=== PATIENT | male | born 1965 ===

== ENCOUNTER 2017-05-05 11:05 | Day surgery (SDC) | payer MEDICAID ==
[2017-05-05 11:47] VITALS: BMI 34.8
[2017-05-05] MEDS ORDERED: Lactated Ringer's 1,000 ML IV ONE (12:00)
[2017-05-05] MEDS ORDERED: MethylPREDNISolone Depo 40 mg/ml Inj ONE (12:56)
[2017-05-05] MEDS ORDERED: Bupivacaine HCl 0.5% PF (10 ml) Inj ONE (12:56)
[2017-05-05] MEDS ORDERED: Lidocaine 1% Inj (20ml) ONE (12:57)
[2017-05-05] MEDS ORDERED: Midazolam 2 MG/2 ML VIAL ONE (13:52)
[2017-05-05] MEDS ORDERED: Lidocaine 1% Inj (20ml) IJ ONE (13:55)
[2017-05-05] MEDS ORDERED: methylPREDNISolone Depo 80 mg/ml Inj IM ONE (13:55)
[2017-05-05] MEDS ORDERED: Bupivacaine HCl 0.5% PF (10 ml) Inj IJ ONE (13:55)
[2017-05-05] MEDS ORDERED: Lactated Ringer's 1,000 ML IV SCH (14:45)
[2017-05-05 16:52] VITALS: BP 122/71; PULSE 71; RESP 18; TEMP 98.4; O2SAT 95
--- NOTE | 2017-05-05 22:49 | OP ---
DATE OF PROCEDURE: 05/05/2017 PREOPERATIVE DIAGNOSIS: Lumbar facet syndrome. POSTOPERATIVE DIAGNOSIS: Lumbar facet syndrome. PROCEDURES PERFORMED: Left L3, L4, and L5 medial branch nerve radiofrequency. SURGEON: Dr. Gonzales. TYPE OF ANESTHESIA: Monitored anesthesia care. ANESTHESIOLOGIST: Dr. Obando. COMPLICATIONS: None. SPECIMENS: None. DESCRIPTION OF PROCEDURE: After we had a discussion of the procedure with the patient including its risks, benefits, alternative, outcome data, possibility of no effect or increased pain, the patient consented to the procedure. He denies any recent infections, bleeding tendencies, or being on anticoagulants, and the decision was then made to proceed to the OR. The patient was placed on a fluoroscopy table in a prone position with 2 pillows underneath his abdomen. The back was prepped and draped in usual sterile fashion and sterile technique was adhered during the entire procedure. The L3, L4, and L5 medial branch nerves were located at the intersection of the superior articular process and the transverse process of the L4-L5 pedicle and also the sacroiliac. The 3 above-targeted areas were visualized on fluoroscopy by turning the fluoroscopy towards the left at approximately 15 degrees. The skin overlying the 3 above-targeted areas were infiltrated with 1% lidocaine using 25-gauge needle. Subsequently, a 22-gauge 3.5-inch spinal needle was then incrementally advanced under fluoroscopic guidance until tip of the needle made bony contact with all 3 target areas. After satisfactory positioning of all 3 needles, sensory and motor testing were carried out to satisfactory results. The patient reported corresponding left-sided lower back pain without any motor twitching down the left leg. At this point, approximately 2 mL of lidocaine was injected to anesthetize each nerve. Radiofrequency was then carried out at 80 degree Celsius for approximately 1-1/2 minutes. At the end of the procedure, each nerve was treated with a combination of 0.5% Marcaine and Depo-Medrol. At the end of the case, the patient's back was cleaned and dried, and bandages were applied. The patient was then transferred to recovery area in good condition without any signs of DRAW BENCH OPERATOR HELPER toxicity or any neurological deficits. He will have a followup in our office in approximately 2 to 4 weeks. En-Martin Gonzales MD
== END 2017-05-05 15:45 | disposition home or self-care (01) ==
LOC: H.OPSURG 11:05
PROVIDERS: ATTEND Anesthesiology
DX: M54.08 Panniculitis affecting regions of neck and back, sacral and sacrococcygeal region (principal); G47.30 Sleep apnea, unspecified; I10 Essential (primary) hypertension; J45.909 Unspecified asthma, uncomplicated
CPT/HCPCS: 64635; 64636; J1030; J1040; J2250; J3010; J7120

== ENCOUNTER 2017-10-29 06:22 | Day surgery (SDC) | payer BC ==
[2017-10-29] MEDS ORDERED: Lidocaine 1% Inj (20ml) IJ ONE (08:40)
[2017-10-29] MEDS ORDERED: Lactated Ringer's 1,000 ML IV ONE (08:40)
[2017-10-29] MEDS ORDERED: Bupivacaine 0.5% Inj(30mL) IJ ONE (08:47)
[2017-10-29] MEDS ORDERED: methylPREDNISolone Depo 80 mg/ml Inj IM ONE (08:47)
[2017-10-29 09:52] VITALS: TEMP 97.5
[2017-10-29 10:28] VITALS: BP 128/89; PULSE 79; RESP 18; O2SAT 95
--- NOTE | 2017-10-29 10:30 | OP ---
PROCEDURE DATE: 10/29/2017 PREOPERATIVE DIAGNOSIS: Lumbar facet syndrome. POSTOPERATIVE DIAGNOSIS: Lumbar facet syndrome. PROCEDURE: Left L3, L4, and L5 medial branch nerve radiofrequency. SURGEON: Ellen Gonzales MD TYPE OF ANESTHESIA: Monitored anesthesia care. ANESTHESIOLOGIST: Dr. Pitts. COMPLICATIONS: None. SPECIMENS: None. DESCRIPTION OF PROCEDURE: As follows. After we had a discussion of the procedure with the patient including its risks, benefits, alternative, outcome data, possibility of no effect or increased pain, the patient consented to the procedure. He denied any recent infections, bleeding tendencies or being on anticoagulants, and the decision was then made to proceed to the OR. The patient was placed on a fluoroscopy table in a prone position with 2 pillows underneath his abdomen. The back was prepped and draped in usual sterile fashion and sterile technique was adhered during the entire procedure. The L3, L4, and L5 medial branch nerves were located at the intersection of the superior articular process and transverse process of the left L4-L5 pedicle and sacroiliac. The three above-targeted areas were visualized on fluoroscopy by turning towards the left at approximately 15 degrees. The skin overlying the three above-targeted areas was then infiltrated with 1% lidocaine using 25-gauge needle. Subsequently, a 22-gauge 3.5-inch Stimuplex needle was then incrementally advanced under fluoroscopic guidance until tip of the needle made bony contact with all three target areas. After satisfactory positioning of all three needles, sensory and motor testing were carried out to satisfactory results. Then each nerve was anesthetized with 1% lidocaine. Radiofrequency was then carried out at 80 degree Celsius for approximately 1 minute and this was repeated twice. At the end of the procedure, each nerve was treated with a combination of 0.5% Marcaine and Depo-Medrol. At the end of the case, the patient's back was cleaned and dried, and bandages were applied. The patient was then transferred to recovery area in good condition without any signs of PIPE INSULATOR toxicity or any neurological deficits. He will have a followup in our office in approximately 2 to 4 weeks. Ellen Gonzales MD
--- NOTE | 2017-10-29 13:54 | RAD ---
PROCEDURE: Lumbar epidural injection HISTORY: PAIN MANAGEMENT COMPARISON: None TECHNIQUE: Total fluoroscopic time (continuous mode) utilized during the procedure 37.2 seconds. Total exam DLP: (mGy) 17.03 FINDINGS: Submitted images from the current procedure: 1.0 IMPRESSION: Less than 1 hr fluoroscopic time utilized during performance of the procedure.
== END 2017-10-29 10:41 | disposition home or self-care (01) ==
LOC: H.OPSURG 06:22
PROVIDERS: ATTEND Anesthesiology
DX: M46.96 Unspecified inflammatory spondylopathy, lumbar region (principal); I10 Essential (primary) hypertension; J45.909 Unspecified asthma, uncomplicated
CPT/HCPCS: 64635; 64636; J1040; J2250; J2270; J3010; J7120

== ENCOUNTER 2017-12-21 09:36 | Emergency (ER) | payer BC ==
[2017-12-21 09:56] VITALS: BMI 33.9
--- NOTE | 2017-12-21 11:12 | ED PDOC ---
HPI: General Adult Time Seen by Provider: 12/21/17 10:19 Chief Complaint (Nursing): GI Problem Chief Complaint (Provider): Bleeding hemorrhoids History Per: Patient History/Exam Limitations: no limitations Additional Complaint(s): Pt reports bleeding from hemorrhoids X 6 days, blood only with BM. Denies fever , nausea, vomiting, abdominal pain. Past Medical History Reviewed: Nursing Documentation, Vital Signs Vital Signs: Last Vital Signs Temp 99 F 12/21/17 09:55 Pulse 93 H 12/21/17 09:55 Resp BP 124/76 12/21/17 09:55 Pulse Ox 96 12/21/17 13:36 - Medical History PMH: Anemia, Arthritis, Asthma, Back Problems, Bronchitis, Depression, Gastritis , HTN, Hypercholesterolemia, Malignancy (Prostate CA), Sleep Apnea Denies: Chronic Kidney Disease - Surgical History Surgical History: Tonsillectomy Other surgeries: Prostatectomy, ex lap, penile implant - Family History Family History: States: Unknown Family Hx - Social History Current smoker - smoking cessation education provided: No Alcohol: None - Home Medications Home Medications: Ambulatory Orders Medication Instructions Recorded Amlodipine Besylate [Norvasc] 5 mg PO DAILY 08/28/14 Fluticasone/Salmeterol 250/50 2 puff INH DAILY 08/28/14 [Advair Diskus 250/50] Albuterol HFA [Ventolin HFA 90 2 puff INH Q4H PRN 01/21/16 mcg/actuation (8 g)] Gabapentin [Neurontin] 1 tab PO TID 02/19/16 Oxycodone HCl/Acetaminophen 1 tab PO .Q4-6 PRN 10/29/17 [Percocet 10-325 mg Tablet] Hydrocortisone 2.5% (Rectal) 1 applic [place] BID #1 tube 12/21/17 [Anusol-HC] - Allergies Allergies/Adverse Reactions: Allergies Allergy/AdvReac Type Severity Reaction Status Date / Time hay fever Allergy ITCHING Uncoded 12/21/17 09:59 Review of Systems Constitutional: Negative for: Fever, Chills Cardiovascular: Negative for: Chest Pain, Palpitations Respiratory: Negative for: Cough, Shortness of Breath Gastrointestinal: Positive for: Hematochezia. Negative for: Nausea, Vomiting, Abdominal Pain, Diarrhea, Constipation, Melena, Rectal Pain Musculoskeletal: Negative for: Neck Pain, Back Pain Skin: Negative for: Rash, Lesions Neurological: Negative for: Headache, Dizziness Physical Exam - Reviewed Nursing Documentation Reviewed: Yes Vital Signs Reviewed: Yes - Physical Exam Appears: Positive for: Well, No Acute Distress Skin: Positive for: Normal Color, Warm, Dry Eye Exam: Positive for: Normal appearance, EOMI, PERRL Cardiovascular/Chest: Positive for: Regular Rate, Rhythm Respiratory: Positive for: Normal Breath Sounds Gastrointestinal/Abdominal: Positive for: Normal Exam, Bowel Sounds, Soft. Negative for: Tenderness Rectal: Positive for: Stool Is Heme: (Pending), Hemorrhoids, Other (No gross bleeding). Negative for: Black Stool, Tenderness Extremity: Positive for: Normal ROM Neurologic/Psych: Positive for: Alert, Oriented - Laboratory Results Result Diagrams: 12/21/17 11:30 12/21/17 11:30 - ECG O2 Sat by Pulse Oximetry: 96 Medical Decision Making Medical Decision Makin yo male with bleeding hemorrhoids. - labs Lab refused to release guaiac result stating insufficient sample but stated sample was faint blue. Pt ate meal without difficulty. Disposition - Clinical Impression Clinical Impression: Bleeding hemorrhoids - Disposition Referrals: Pradip Betancur MD [Staff Provider] - Condition: STABLE Prescriptions: Hydrocortisone 2.5% (Rectal) [Anusol-HC] 1 applic TX BID #1 tube Instructions: Hemorrhoids, Hemorrhoidectomy Forms: [employer] (Norwegian)
[2017-12-21 11:46] LABS: BASO # 0.1 K/uL (0.0-0.2); BASO % 0.7 % (0.0-2.0); EOS # 0.2 K/uL (0.0-0.7); EOS % 2.3 % (0.0-4.0); HEMOGLOBIN 14.6 g/dL (12.0-18.0); LYMPH # 2.1 K/uL (1.0-4.3); LYMPH % 24.6 % (20.0-40.0); MEAN CELL VOLUME 81.2 fl (80.0-94.0); MEAN CORPUSCULAR HGB CONC 33.3 g/dL (33.0-37.0); MEAN PLATELET VOLUME 8.5 fl (7.2-11.7); MONO # 1.1 K/uL (0.0-0.8); MONO % 13.3 % (0.0-10.0); NEUT % 59.1 % (50.0-75.0); NRBC % 0.1 % (0.0-0.0); RBC 5.4 Mil/uL (4.40-5.90); WHITE BLOOD COUNT 8.4 K/uL (4.8-10.8)
[2017-12-21 11:51] LABS: ALB/GLOB RATIO 1.1 (1.0-2.1); ALBUMIN 3.6 g/dL (3.5-5.0); ALT/SGPT 208 U/L (21-72); AST/SGOT 60 U/L (17-59); BLOOD UREA NITROGEN 18 mg/dl (9-20); CALCIUM 8.7 mg/dL (8.4-10.2); GFR AFRICAN-AMERICAN > 60; GFR NON-AFRICAN AMERICAN > 60
[2017-12-21 11:56] LABS: PARTIAL THROMBOPLASTIN TIME 32.4 Seconds (25.6-37.1)
[2017-12-21 14:03] VITALS: BP 132/81; PULSE 84; RESP 15; TEMP 98.5; O2SAT 100
== END 2017-12-21 14:03 | disposition home or self-care (01) ==
LOC: H.ER 09:36
DX: K64.9 Unspecified hemorrhoids (principal); E78.00 Pure hypercholesterolemia, unspecified; I10 Essential (primary) hypertension; F32.9 Major depressive disorder, single episode, unspecified; J45.909 Unspecified asthma, uncomplicated

== ENCOUNTER 2017-12-29 08:28 | Day surgery (SDC) | payer BC ==
[2017-12-29] MEDS ORDERED: Lactated Ringer's 1,000 ML IV ONE ×3 (09:53→15:05)
[2017-12-29] MEDS ORDERED: Propofol 10 mg/ml Inj (20 ML) ONE (10:26)
[2017-12-29] MEDS ORDERED: Succinylcholine 200 mg/10 ml Inj IV ONE (10:26)
[2017-12-29] MEDS ORDERED: ePHEDrine 50 mg/ml Inj ONE (10:26)
[2017-12-29] MEDS ORDERED: Rocuronium 10 mg/ml (5 ml) ONE (10:26)
[2017-12-29] MEDS ORDERED: Bupivacaine HCl 0.25% PF (10 ml) Inj ONE (10:37)
[2017-12-29] MEDS ORDERED: Midazolam 2 MG/2 ML VIAL ONE (11:59)
[2017-12-29] MEDS ORDERED: Sevoflurane - Inhalation Anesthetic Liq (250 ml) ONE (12:22)
--- NOTE | 2017-12-29 12:29 | CP.SDSHP ---
<Pradip Betancur - Last Filed: 12/29/17 12:27> Same Day Surgery H & P - History Proposed Procedure: Examination under anesthesia, hemorrhoidectomy Pre-Op Diagnosis: hemorrhoids - Previous Medical/Surgical History Previous Surgical History: Prostatectomy, Exploratory laparotomy, incisional hernias repairs - Allergies Allergies: Allergies hay fever Allergy (Uncoded 12/21/17 09:59) ITCHING WATERY EYES, RASH - Physical Exam Vital Signs: Vital Signs 12/29/17 08:45 Temperature 98 F Pulse Rate 92 H Respiratory 20 Rate Blood Pressure 118/72 O2 Sat by Pulse 96 Oximetry Mental Status: Alert & Oriented x3 Neuro: WNL Heart: WNL Lungs: WNL GI: WNL - {Optional Preform as Required} Breast: WNL Abdomen: WNL Rectal: Other (hemorrhoids) Integument: WNL : WNL Ortho: WNL ENT: WNL - Impression Impression: hemorrhoids Pt. Evaluated Today:Candidate for Anesthesia & Procedure: Yes - Date & Time Date: 12/29/17 Short Stay Discharge - Short Stay Discharge Admitting Diagnosis/Reason for Visit: K64.9 Disposition: HOME/ ROUTINE Referrals: Ivon Callahan MD [Primary Care Provider] - Additional Instructions (Diet, Activity): When having a bowel movement may notice white paper like material come out. It was placed there during surgery to aid with blood clotting. <Lc Weinberg - Last Filed: 12/29/17 14:41> Same Day Surgery H & P - Allergies Allergies: Allergies hay fever Allergy (Uncoded 12/21/17 09:59) ITCHING WATERY EYES, RASH - Physical Exam Vital Signs: Vital Signs 12/29/17 12/29/17 12/29/17 08:45 13:48 14:05 Temperature 98 F 97.1 F L 97.3 F L Pulse Rate 92 H 82 79 Respiratory 20 17 17 Rate Blood Pressure 118/72 132/79 124/60 O2 Sat by Pulse 96 100 100 Oximetry Short Stay Discharge - Short Stay Discharge Follow-up: F/u 10-14 days
[2017-12-29] MEDS ORDERED: Absorbable Gelatin Sponge Size 100 ONE ×2 (12:49→13:27)
[2017-12-29] MEDS ORDERED: Neostigmine 1:1000 (1 mg/ml) Inj ONE (13:06)
--- NOTE | 2017-12-29 13:45 | PCM.SURG1 ---
Surgeon's Initial Post Op Note - Surgeon's Notes Surgeon: Dr. Betancur Door Clamper: Dr. Weinberg PGY2 Type of Anesthesia: General Endo Pre-Operative Diagnosis: hemorrhoid Operative Findings: see operative report Post-Operative Diagnosis: see operative report Operation Performed: exam under anesthesia. hemorrhoidectomy Specimen/Specimens Removed: hemorrhoid Estimated Blood Loss: EBL {In ML}: 20 Blood Products Given: N/A Drains Used: No Drains Post-Op Condition: Good Date of Surgery/Procedure: 12/29/17 Time of Surgery/Procedure: 13:44
[2017-12-29] MEDS ORDERED: Oxycodone/Acetaminophen 5/325 mg Tab PO PRN (13:46)
[2017-12-29] MEDS: HYDROmorphone 0.5 mg/0.5 ml ISec IVP PRN ×3 (14:05→14:35)
[2017-12-29 15:29] VITALS: RESP 20
[2017-12-29 16:43] VITALS: BP 110/70; PULSE 86; TEMP 97.4; O2SAT 97
--- NOTE | 2017-12-30 08:44 | OP ---
PROCEDURE DATE: 12/29/17 PREOPERATIVE DIAGNOSIS: Bleeding hemorrhoid. POSTOPERATIVE DIAGNOSIS: Bleeding hemorrhoid. PROCEDURE: Examination under anesthesia and hemorrhoidectomy. SURGEON: Pradip Betancur MD. REFRIGERATED CARGO CLERK: Lc Weinberg DO. TYPE OF ANESTHESIA: General endotracheal intubation. ANESTHESIA ADMINISTERED BY: Dr. Pitts. IV FLUIDS: Crystalloids. ESTIMATED BLOOD LOSS: 20 mL. INTRAOPERATIVE FINDINGS: Engorged left hemorrhoid at 3 o'clock position. SPECIMEN: Hemorrhoid. BRIEF HISTORY: Mr. Craft is a very pleasant 52-year-old gentleman who presented to my office complaining of bleeding and some pain upon defecation and upon further investigation, the patient was found to have hemorrhoids. All the risks and the benefits of the procedure were explained to the patient and with the patient having a full understanding of all the risks and benefits involved, informed consent was obtained and the patient was taken to the operating room for above-stated procedure. PROCEDURE: The patient was brought into the operating room and was intubated on . Subsequent to that was placed in a rashad-knife position. Subsequent to that, retraction of the buttocks was obtained with a white silk tape. At this point in time, the patient's buttock area was prepped with Betadine and draped in a standard surgical fashion. Prior to the beginning of the procedure, time-out was called in the room and everyone in the room were in agreement. The patient received prophylactic Ancef antibiotic prior to the time of the incision. Using digital rectal examination, the rectal vault was examined. There appeared to be 3 engorged columns of hemorrhoids; however, the one on the left 3 o'clock position appeared to be more engorged and more friable. At this point in time, the retractor was inserted into the patient's rectal vault and hemorrhoid clamp was placed on the hemorrhoid on the left side. At this point in time, using 15 blade scalpel knife, the mucosa of the distal rectum and the anodermal incised and using the electrical cautery, the hemorrhoid was dissected off, taken care to preserve the sphincter muscles. Once this was accomplished, the hemorrhoid was passed off to the [facility] as a specimen. At this point in time, hemostasis was achieved with electrical cautery and subsequent to that, the anoderm defect as well as the mucosal defect were approximated with interrupted 3-0 chromic sutures. At this point in time, hemostasis was confirmed. The patient's rectal vault was irrigated and the fluid was suctioned out and at the end of the procedure, several rolled up sheets of Gelfoam, thrombin were inserted into the patient's rectal vault. The patient was successfully transferred to the stretcher, extubated by the anesthesia team and taken to the recovery room in a stable condition. At the end of the procedure, all instrument counts, needles, and sponges were correct. Pradip Betancur MD
== END 2017-12-29 16:15 | disposition home or self-care (01) ==
LOC: H.OPSURG 08:28
PROVIDERS: ATTEND Surgery
DX: K64.9 Unspecified hemorrhoids (principal); J45.909 Unspecified asthma, uncomplicated; E78.5 Hyperlipidemia, unspecified; I10 Essential (primary) hypertension; F32.9 Major depressive disorder, single episode, unspecified; Z85.46 Personal history of malignant neoplasm of prostate
CPT/HCPCS: 46945; 82948; 88304; J0330; J0690; J1170; J2001; J2250; J2405; J2704; J2710; J2765; J3010; J7030; J7120

== ENCOUNTER 2018-04-13 18:27 | Emergency (ER) | payer BC ==
[2018-04-13 18:27] VITALS: BMI 33.9
[2018-04-13 18:50] VITALS: RESP 18; TEMP 98.1
[2018-04-13] MEDS ORDERED: Sodium Chloride 0.9% 1,000 ML IV STA (19:39)
[2018-04-13] MEDS ORDERED: Magnesium Sulfate 2 gm/50 ml 2 GM/50 ML BAG IV STA (19:39)
[2018-04-13] MEDS ORDERED: Dexamethasone 4 mg/1 ml IVP STA (19:40)
[2018-04-13] MEDS ORDERED: Magnesium Sulfate 2 gm/50 ml 2 GM/50 ML BAG ONE (19:53)
[2018-04-13] MEDS ORDERED: Dexamethasone 4 mg/1 ml ONE (20:15)
[2018-04-13 20:41] LABS: BASO # 0.1 K/uL (0.0-0.2); BASO % 0.8 % (0.0-2.0); EOS # 0.1 K/uL (0.0-0.7); EOS % 1.6 % (0.0-4.0); HEMOGLOBIN 13.9 g/dL (12.0-18.0); LYMPH # 1.9 K/uL (1.0-4.3); LYMPH % 28.9 % (20.0-40.0); MEAN CELL VOLUME 75.4 fl (80.0-94.0); MEAN CORPUSCULAR HGB CONC 33.2 g/dL (33.0-37.0); MEAN PLATELET VOLUME 8.5 fl (7.2-11.7); MONO # 0.8 K/uL (0.0-0.8); MONO % 11.8 % (0.0-10.0); NEUT # 3.8 K/uL (1.8-7.0); NEUT % 56.9 % (50.0-75.0); NRBC % 0.1 % (0.0-0.0); RBC 5.56 Mil/uL (4.40-5.90); RED CELL DISTRIBUTION WIDTH 18.8 % (11.5-14.5); WHITE BLOOD COUNT 6.7 K/uL (4.8-10.8)
[2018-04-13 20:53] LABS: ALBUMIN 4.2 g/dL (3.5-5.0); ALT/SGPT 48 U/L (21-72); AST/SGOT 38 U/L (17-59); BLOOD UREA NITROGEN 14 mg/dl (9-20); CALCIUM 9.3 mg/dL (8.4-10.2); GFR NON-AFRICAN AMERICAN > 60; LIPASE 84 U/L (23-300)
[2018-04-13 20:58] LABS: OPIATES, UR NEGATIVE (NEGATIVE)
[2018-04-13 20:59] LABS: SQUAMOUS EPITHIAL < 1 /hpf (0-5); URINE BACTERIA FEW (<OCC); URINE BILIRUBIN NEGATIVE (NEGATIVE); URINE BLOOD NEGATIVE (NEGATIVE); URINE CLARITY SLIGHTY-CLOUDY (Clear); URINE COLOR YELLOW (YELLOW); URINE GLUCOSE (UA) NEG (Normal); URINE HYALINE CAST 0-2 /hpf (0-2); URINE LEUKOCYTE ESTERASE NEG Leu/uL (Negative); URINE PROTEIN 100 mg/dL (NEGATIVE); URINE UROBILINOGEN 0.2-1.0 mg/dL (0.2-1.0)
[2018-04-13 21:07] LABS: BARBITURATES, UR POSITIVE (NEGATIVE); BENZODIAZEPINES, UR NEGATIVE (NEGATIVE); PHENCYCLIDINE, UR NEGATIVE (NEGATIVE)
--- NOTE | 2018-04-13 21:35 | ED PDOC ---
HPI: Headache Time Seen by Provider: 04/13/18 19:10 Chief Complaint (Nursing): GI Problem Chief Complaint (Provider): Headache and Abdominal Pain History Per: Patient History/Exam Limitations: no limitations Onset/Duration Of Symptoms: Days (x14) Current Symptoms Are (Timing): Still Present Additional Complaint(s): 52 y/o male with a PMHc of prostrate CA and migraines presents to the ED for evaluation of headache, onset 2 weeks ago. Patient additionally reports of developing abdominal pain, onset 2 days ago. Patient states he has a history of having intermittent migraines but has been migraine free for years. Patient reports his PMD prescribed Fioricet with no relief. In addition, patient states he is in pain management for neuropathy. Patient states abdominal pain is located in the epigastric region and associated with nausea. Denies vomiting and diarrhea. PMD: Akhil Negro Past Medical History Reviewed: Historical Data, Nursing Documentation, Vital Signs Vital Signs: Last Vital Signs Temp 98.1 F 04/13/18 18:45 Pulse 96 H 04/13/18 18:45 Resp 18 04/13/18 18:45 BP 106/72 04/13/18 18:45 Pulse Ox 98 04/13/18 18:45 - Medical History PMH: Anemia, Arthritis, Asthma, Back Problems, Bronchitis, Depression, Gastritis , HTN, Hypercholesterolemia, Malignancy (Prostate CA), Sleep Apnea Denies: Chronic Kidney Disease - Surgical History Surgical History: Tonsillectomy - Family History Family History: States: Unknown Family Hx - Social History Current smoker - smoking cessation education provided: No Alcohol: None Drugs: Denies - Home Medications Home Medications: Ambulatory Orders Medication Instructions Recorded Amlodipine Besylate [Norvasc] 5 mg PO DAILY 08/28/14 Fluticasone/Salmeterol 250/50 2 puff INH DAILY 08/28/14 [Advair Diskus 250/50] Albuterol HFA [Ventolin HFA 90 2 puff INH Q4H PRN 01/21/16 mcg/actuation (8 g)] Gabapentin [Neurontin] 1 tab PO TID 02/19/16 Omeprazole [Omeprazole] 20 mg PO DAILY 12/24/17 oxyCODONE/Acetaminophen [Percocet 5 - 325 mg PO Q4 PRN 12/29/17 5/325 mg Tab] Esomeprazole Magnesium [Nexium] 20 mg PO QAM #30 ecc 04/13/18 - Allergies Allergies/Adverse Reactions: Allergies Allergy/AdvReac Type Severity Reaction Status Date / Time hay fever Allergy ITCHING Uncoded 04/13/18 18:50 Review of Systems ROS Statement: Except As Marked, All Systems Reviewed And Found Negative Gastrointestinal: Positive for: Nausea, Abdominal Pain. Negative for: Vomiting , Diarrhea Neurological: Positive for: Headache Physical Exam - Reviewed Nursing Documentation Reviewed: Yes Vital Signs Reviewed: Yes - Physical Exam Appears: Positive for: No Acute Distress Head Exam: Positive for: ATRAUMATIC, NORMOCEPHALIC Skin: Positive for: Normal Color, Warm, Dry Eye Exam: Positive for: Normal appearance, EOMI, PERRL Neck: Positive for: Normal, Painless ROM Cardiovascular/Chest: Positive for: Regular Rate, Rhythm. Negative for: Murmur Respiratory: Positive for: Normal Breath Sounds. Negative for: Respiratory Distress Gastrointestinal/Abdominal: Positive for: Normal Exam, Soft, Tenderness ( epigastric pain) Back: Positive for: Normal Inspection. Negative for: L CVA Tenderness, R CVA Tenderness, Vertebral Tenderness Extremity: Positive for: Normal ROM. Negative for: Pedal Edema, Deformity Neurologic/Psych: Positive for: Alert, Oriented. Negative for: Motor/Sensory Deficits - Laboratory Results Result Diagrams: 04/13/18 20:16 04/13/18 20:16 - ECG O2 Sat by Pulse Oximetry: 98 (RA) Pulse Ox Interpretation: Normal Medical Decision Making Medical Decision Making: Time: 2022 Impression: 52 y/o male with recurring migraine and epigastric pain. Plan: -- Alcohol Serum -- CMP -- Urine Drug Screen -- Lipase -- Magnesium -- ED Urine Dipstick -- CBC with differentials -- Decadron 8 mg IVP -- Magnesium Sulfate 2 gm in 50 ml IV -- Sodium Chloride IV 1000 mls/hr -- Reglan 10 mg IVP -- Toradol 30 mg IVP -- Heplock Insertion -- Urinalysis -- Gallbladder & Pancreatic US Time: 2201 US RESULTS FINDINGS: Liver: Unremarkable. No mass. No intrahepatic bile duct dilation. 14.8 cm Gallbladder: Unremarkable. No gallstones. Wall 2 mm Common bile duct: Unremarkable as visualized. No stones. No dilation. 3 mm Pancreas: Unremarkable as visualized. Right kidney: Unremarkable. No stones. No solid mass. No hydronephrosis. RIGHT kidney there 11 cm x 4.6 cm x 4.6 cm. IMPRESSION: Normal right upper quadrant ultrasound. Thank you for allowing us to participate in the care of your patient. Dictated and Authenticated by: Laurent Traore MD 04/13/2018 10:02 PM Eastern Time ([place] & [place]) Time: 2219 -- On re-evaluation, patient reports headache and abdominal pain has resolved. Patient is stable for discharge home with a diagnosis of migraines and gastritis. Patient instructed to follow up with PMD and pain management. Scribe Attestation: Documented by Xander Ba acting as a scribe for Armando Monique MD. Provider Scribe Attestation: All medical record entries made by the Scribe were at my direction and personally dictated by me. I have reviewed the chart and agree that the record accurately reflects my personal performance of the history, physical exam, medical decision making, and the department course for this patient. I have also personally directed, reviewed, and agree with the discharge instructions and disposition. Disposition - Clinical Impression Clinical Impression: Gastritis, Migraine - Patient ED Disposition Is Patient to be Admitted: No Counseled Patient/Family Regarding: Studies Performed, Diagnosis, Need For Followup, Rx Given - Disposition Disposition: Routine/Home Disposition Time: 22:19 Condition: STABLE Prescriptions: Esomeprazole Magnesium [Nexium] 20 mg PO QAM #30 ecc Instructions: Gastritis, Migraine Headaches in Adults Forms: [facility] (Macedonian)
[2018-04-13 22:36] VITALS: BP 101/62; PULSE 71; O2SAT 99
--- NOTE | 2018-04-14 09:06 | US ---
Date of service: 04/13/2018 HISTORY: epigastric pain COMPARISON: None. TECHNIQUE: Sonographic evaluation of the right upper quadrant of the abdomen. FINDINGS: LIVER: Measures 14.8 cm in length. Normal echogenicity of the liver parenchyma. No mass. No intrahepatic bile duct dilatation. Normal hepatopetal portal venous flow. GALLBLADDER: Unremarkable. No gallstones. COMMON BILE DUCT: Measures 2 mm. No stones. No dilatation. PANCREAS: Limited visualization. No gross abnormality. RIGHT KIDNEY: Measures 11.1 cm in length. Normal echogenicity. No calculus, mass, or hydronephrosis. AORTA: No aneurysmal dilatation. IVC: Unremarkable. OTHER FINDINGS: None . IMPRESSION: No evidence of cholelithiasis or cholecystitis. Limited visualization of pancreas. Unremarkable liver. The preliminary findings for this examination were reported by [facility] at 10:02 p.m. on 04/13/2018. There is concurrence of this report with the preliminary findings.
== END 2018-04-13 22:30 | disposition home or self-care (01) ==
LOC: H.ER 18:27
DX: G43.909 Migraine, unspecified, not intractable, without status migrainosus (principal); K29.70 Gastritis, unspecified, without bleeding; E78.00 Pure hypercholesterolemia, unspecified; I10 Essential (primary) hypertension; Z85.46 Personal history of malignant neoplasm of prostate
CPT/HCPCS: 76705; 80053; 81003; 83690; 83735; 85025; 96365; 96375; 99283; G0480; J1100; J1885; J2405; J2765; J7030

== ENCOUNTER 2018-09-30 06:04 | Day surgery (SDC) | payer BC ==
[2018-09-28 18:30] VITALS: BMI 34.2
[2018-09-30 06:35] VITALS: RESP 20
[2018-09-30] MEDS ORDERED: Lactated Ringer's 1,000 ML IV ONE (07:04)
--- NOTE | 2018-09-30 07:38 | CP.SDSHP ---
Same Day Surgery H & P - History Proposed Procedure: Cervical medial branch nerve blocks Pre-Op Diagnosis: Cervical spondylosis - Previous Medical/Surgical History Cardiac: Hypertension Pulmonary: Emphysema/COPD Pain: 8.Very Severe - Allergies Allergies: Allergies hay fever Allergy (Uncoded 09/30/18 06:26) ITCHING WATERY EYES, RASH - Physical Exam Vital Signs: Vital Signs 09/30/18 09/30/18 06:32 06:41 Temperature 97.3 F L Pulse Rate 85 85 Respiratory 20 Rate Blood Pressure 104/65 O2 Sat by Pulse 96 Oximetry Neuro: WNL Heart: WNL Lungs: WNL - Impression Impression: Cervical spondylosis Pt. Evaluated Today:Candidate for Anesthesia & Procedure: Yes Short Stay Discharge - Short Stay Discharge Admitting Diagnosis/Reason for Visit: M47.816 Disposition: HOME/ ROUTINE
[2018-09-30] MEDS ORDERED: Iohexol 300 10 ML IJ ONE (08:07)
[2018-09-30] MEDS ORDERED: MethylPREDNISolone Depo 40 mg/ml Inj IM ONE (08:07)
[2018-09-30] MEDS ORDERED: Bupivacaine HCl 0.25% PF (30 ml) Inj IJ ONE (08:07)
[2018-09-30] MEDS ORDERED: Lidocaine 1% Inj (20ml) IJ ONE (08:07)
[2018-09-30] MEDS ORDERED: HYDROmorphone 0.5 mg/0.5 ml ISec IVP PRN (08:25)
[2018-09-30] MEDS ORDERED: Lactated Ringer's 1,000 ML IV SCH (08:30)
[2018-09-30 09:11] VITALS: O2SAT 96
[2018-09-30 09:45] VITALS: BP 108/64; PULSE 82; TEMP 97.2
--- NOTE | 2018-09-30 13:34 | RAD ---
Date of service: 09/30/2018 PROCEDURE: Intraoperative Fluoroscopy. HISTORY: C ARM FINDINGS: Fluoroscopic assistance was provided. Fluoroscopy time = 41.8 sec. Radiation dose = 12.42 mGy. Please refer to the operative report from SUZAN Suarez.
--- NOTE | 2018-09-30 18:36 | OP ---
PROCEDURE DATE: 09/30/2018 PREOPERATIVE DIAGNOSIS: Cervical spondylosis. POSTOPERATIVE DIAGNOSIS: Cervical spondylosis. PROCEDURE: Bilateral C3, C4, and C5 medial branch nerve blocks. ANESTHESIOLOGIST: Wood Nichols MD SURGEON: Lenora Gnozales MD TYPE OF ANESTHESIA: Monitored anesthesia care. COMPLICATIONS: None. SPECIMEN: None. DESCRIPTION OF PROCEDURE: Procedure is a follows. After we had discussion of the procedure with the patient including its risks, benefits, alternatives, outcome data, possibility of no effect or increased pain, the patient consented to the procedure. He denied any recent infection, bleeding tendencies, or being on anticoagulants. A decision was then made to proceed to the OR. The patient was placed on the fluoroscopy table in a prone position using a head positioner. The neck was prepped and draped in the usual sterile fashion, and a sterile technique was adhered to during the entire procedure. The C3, C4, and C5 vertebral levels were first identified in the anteroposterior view. The medial branch nerves were located at the mid point of the facet border on the corresponding side. The procedure was first performed on the right side. The skin overlying the three above targeted areas was then infiltrated with 1% lidocaine using 25-gauge needle. Subsequently, a 25-gauge 3.5-inch spinal needle was then incrementally advanced under fluoroscopic guidance until the tip of needle made bony contact with all three targeted areas. After satisfactory positioning of all three needles, approximately 0.5 mL of Isovue contrast was injected to rule out intravenous uptake. After doing so, approximately 2 mL of 0.25% Marcaine and Depo-Medrol mixture was injected. The needle was then removed and the same exact procedure was performed on the contralateral left side using the same medications and techniques. At the end of the case, the patient's neck was cleaned and dry bandage was applied. The patient was then transferred to recovery area in good conditions without any signs of SENIOR SYSTEMS ADMINISTRATOR toxicity or any neurological deficit. He will be followed up in our office in approximately two to four weeks. Ellen Gonzales MD
== END 2018-09-30 10:00 | disposition home or self-care (01) ==
LOC: H.OPSURG 06:04
PROVIDERS: ATTEND Anesthesiology
DX: M47.812 Spondylosis without myelopathy or radiculopathy, cervical region (principal); I10 Essential (primary) hypertension; J44.9 Chronic obstructive pulmonary disease, unspecified
CPT/HCPCS: 64490; 64491; J1030; J2250; J3010; J7120; Q9967